=== PATIENT | male | born 1960 | race Caucasian/White ===

== ENCOUNTER → 2016-11-23 | Outpatient (CLI) | payer BC ==
[~2016-11-23] MED LIST: ASPI81TA28 PO; BUPR-79 PO; DILT240C48 PO; KETO10TA PO; OXYC-57 PO
--- NOTE | 2016-11-23 13:33 | DIAGNOSTIC IMAGING REPORT ---
ORBIT RADIOGRAPHS 3 VIEWS HISTORY: pre-MRI screening. COMPARISON: None. FINDINGS: There are no radiopaque foreign bodies identified within the orbits. IMPRESSION: No radiopaque foreign bodies identified within the orbits. Electronically signed by: Nilesh Busch M.D. 11/23/2016 1:32 PM Dictated Date/Time: 11/23/2016 1:31 PM
--- NOTE | 2016-11-23 13:37 | DIAGNOSTIC IMAGING REPORT ---
CHEST 2 VIEWS ROUTINE CLINICAL HISTORY: LEFT SHOULDER PAIN COMPARISON STUDY: No previous studies for comparison. FINDINGS: A dual lead left pacemaker is in place. Lead tips project of the right atrial appendage and right ventricle. Leads are intact. Markers indicate an Advisa SureScan pacemaker. Cardiac size is normal. Mediastinal contours are normal. There is no evidence of pulmonary edema. IMPRESSION: 1. No acute cardiopulmonary findings. 2. Dual lead left subclavian pacemaker, as described above. Electronically signed by: Jae Abraham M.D. 11/23/2016 1:36 PM Dictated Date/Time: 11/23/2016 1:32 PM
--- NOTE | 2016-11-23 14:41 | DIAGNOSTIC IMAGING REPORT ---
FLUOROSCOPICALLY GUIDED LEFT SHOULDER ARTHROGRAM PRIOR TO MRI CLINICAL HISTORY: Left shoulder pain. Fluoroscopy time: 0.4 minutes. Procedure: The procedure, risks and benefits were discussed with the patient and informed written consent was obtained. The procedure was performed by Dr. Abraham following a timeout. Skin overlying the left glenohumeral joint was prepped and draped in sterile fashion and local anesthesia was achieved with 1% lidocaine. A left subclavian pacemaker was incidentally noted. Under intermittent fluoroscopic guidance, a 2 1/2 inch, 22-gauge needle was directed into the left glenohumeral joint. Positioning within the joint space was confirmed with injection of a small amount of contrast. At this time, a mixture of 0.05 cc of Gadavist, 10 cc of normal saline and 10 cc of Optiray 300 was injected into the left glenohumeral joint. The needle was removed. The patient tolerated the procedure well and no immediate complications were evident. IMPRESSION: Fluoroscopically guided left shoulder arthrogram prior to MRI. Electronically signed by: Jae Abraham M.D. 11/23/2016 2:39 PM Dictated Date/Time: 11/23/2016 2:38 PM
--- NOTE | 2016-11-24 18:07 | DIAGNOSTIC IMAGING REPORT ---
MRI ARTHROGRAM OF THE LEFT SHOULDER CLINICAL HISTORY: Left shoulder pain and decreased range of motion following injury. COMPARISON STUDY: No previous studies for comparison. TECHNIQUE: Following a fluoroscopically guided left shoulder arthrogram and utilizing a 1.5 Michelle magnet and dedicated coil, multiplanar, multiecho imaging of the left shoulder was performed. FINDINGS: There is expected artifact from the left pacemaker. There is contrast within the subacromial/subdeltoid bursa. This is likely due to a full-thickness subscapularis tear. There is significant retraction of the subscapularis tendon to the level the subpleural focal bursa. There is also tendinopathy with a tear of the distal anterior fibers of supraspinatus. This represents at least a high-grade partial-thickness tear with possible small full-thickness component. There is no full-thickness tear of infraspinatus. The proximal long head of biceps tendon is intact. There is moderate osteoarthritis of the acromioclavicular joint. The glenoid labrum is truncated with fraying. No mass or fluid collection shown adjacent to the left shoulder. IMPRESSION: 1. Full-thickness tear of subscapularis with significant tendon retraction. 2. High-grade partial-thickness tear of distal supraspinatus. No tendon retraction of supraspinatus or infraspinatus. 3. Moderate osteoarthritis of the left acromioclavicular joint. 4. Truncated, irregular glenoid labrum. Electronically signed by: Jae Abraham M.D. 11/24/2016 6:06 PM Dictated Date/Time: 11/23/2016 3:35 PM
== END | disposition home or self-care (01) ==
LOC: C.MRI 12:55
PROVIDERS: ATTEND Physician Assistant Surgical
DX: M25.512 Pain in left shoulder (principal)

== ENCOUNTER → 2016-12-12 | Outpatient (CLI) | payer BC ==
--- NOTE | 2016-12-12 11:43 | DIAGNOSTIC IMAGING REPORT ---
CHEST 2 VIEWS ROUTINE HISTORY: 56-year-old male presents for preoperative exam. COMPARISON: Chest radiographs 11/23/2016. TECHNIQUE: Frontal and lateral views of the chest. FINDINGS: Dual lead left subclavian pacer is again noted with leads overlying the right atrial appendage and right ventricle. Leads appear to be intact. Cardiac silhouette is within normal limits. No pneumothorax, pleural effusion or focal airspace consolidation. The bones appear intact. IMPRESSION: 1. No acute cardiomegaly process. 2. Dual-lead left subclavian pacer as above. Electronically signed by: Sergio Wilson 12/12/2016 11:42 AM Dictated Date/Time: 12/12/2016 11:39 AM
[2016-12-12 12:09] LABS: BASO % 0.3 %; BASO ABS # 0.04 K/uL (0-0.2); COMPLETE YES; EOS % 1.8 %; HEMATOCRIT 46.7 % (42-52); IG% 0.2 %; LYMPH ABS # 3.61 K/uL (1.2-3.4); MEAN CORPUSCULAR HEMOGLOBIN 29.9 pg (25-34); MEAN CORPUSCULAR HGB CONC 33.2 g/dl (32-36); MEAN PLATELET VOLUME 11.1 fL (7.4-10.4); NEUT % 62.7 %; PLATELET COUNT 269 K/uL (130-400); RED BLOOD COUNT 5.19 M/uL (4.7-6.1); WHITE BLOOD COUNT 12.43 K/uL (4.8-10.8)
[2016-12-12 12:23] LABS: BLOOD UREA NITROGEN 16 mg/dl (7-18); CALCIUM 9.2 mg/dl (8.5-10.1); CARBON DIOXIDE 25 mmol/L (21-32); CHLORIDE 110 mmol/L (98-107); CREATININE 0.97 mg/dl (0.60-1.40); GLUCOSE 89 mg/dl (70-99); POTASSIUM 4.3 mmol/L (3.5-5.1); SODIUM 142 mmol/L (136-145)
== END | disposition home or self-care (01) ==
LOC: C.LAB 10:33
PROVIDERS: ATTEND Orthopaedic Surgery
DX: Z01.812 Encounter for preprocedural laboratory examination (principal); Z01.810 Encounter for preprocedural cardiovascular examination; Z95.0 Presence of cardiac pacemaker

== ENCOUNTER → 2016-12-22 | Day surgery (SDC) | payer BC ==
[2016-12-14 08:57] VITALS: Ht 175.3 cm; Wt 81.8 kg
[~2016-12-22] VITALS: Ht 175.3 cm; Wt 81.8 kg
[~2016-12-22] MED LIST changes: +ATROPINE SULFATE 0.1 MG/ML 5ML SYR IV PRN; +CEFAZOLIN 2000 MG/60 ML D5W IV SCH; +EpHEDrine SULFATE INJ 50 MG/ML AMP IV PRN; +EpINEphrine INJ 1MG/ML AMP 1 MG/ML AMP ONE; +FENTANYL CITRATE INJ 50 MCG/1 ML 2 ML VIAL ONE; +GLYCOPYRROLATE INJ 0.2 MG/ML VIAL ONE; +HYDROmorphone INJ 1 MG/ML SYR IV PRN; +KETOROLAC TROMETHAMINE 30 MG/ML VIAL ONE; +LACTATED RINGER'S 1000ML 1,000 ML IV SCH; +LIDOCAINE HCL 1% MPF 2 ML VIAL ONE; +LIDOCAINE HCL 2% 2 ML VIAL (20MG/ML) ONE; +MIDAZOLAM HCL 1 MG/ML 2ML VIAL ONE; +NEOSTIGMINE METHYLSULFATE 5 MG/5 ML SYR ONE; +ONDANSETRON INJ 2 MG/ML 2 ML VIAL IV PRN; +ONDANSETRON INJ 2 MG/ML 2 ML VIAL ONE; +OXYCODONE/ACETAMINOPHEN 5-325 TAB PO PRN; +PHENYLEPHRINE HCL INJ 10 MG/ML VIAL ONE; +PROPOFOL IV EMULSION 10 MG/ML 20 ML VIAL IV ONE; +ROCURONIUM BROMIDE 10 MG/ML 5 ML VIAL ONE; +ROPIVACAINE 0.5% 5 MG/ML 30 ML VIAL ONE; +SODIUM CHLORIDE 0.9% 1000ML 1,000 ML IV SCH
--- NOTE | 2016-12-22 11:00 | History & Physical Bridge - [place] ---
H&P Re-Evaluation Bridge Note: I have examined the patient, reviewed the History & Physical and in the interval since the performance of the History & Physical I have noted the following changes of clinical significance: No changes noted
[2016-12-22] MEDS: BUPIVACAINE/EPINEPHRINE 0.25% 1:200,000 30 ML VIAL ONE ×2 (14:29→14:38)
--- NOTE | 2016-12-22 14:52 | Discharge Instructions-SurgCtr ---
Discharge Instructions Date of Service Dec 22, 2016. Visit Reason for Visit: Left Shoulder Full Thickness Rotator Cuff Tear Discharge Discharge Diagnosis / Problem: SAME ABOVE Discharge Goals Goal(s): Decrease discomfort, Improve function Medications Stopped Medications Name(s): D/C'D ASA x 5 days Restart Stopped Medication(s): MAY RESTART ASA 12/23/2016 Activity Recommendations Activity Limitations: as noted below Lifting Limitations: until after follow-up appointment Exercise/Sports Limitations: until after follow-up appointment Shower/Bathe: tomorrow Anesthesia . Post Anesthesia Instructions: If you have had General Anesthesia or IV Sedation: * Do not drive today. * Resume driving when surgeon permits. * Do not make important decisions or sign legal documents today. * Call surgeon for: 1. Temperature elevations greater than 101 degrees F. 2. Uncontrollable pain. 3. Excessive bleeding. 4. Persistent nausea and vomiting. 5. Medication intolerance (nausea, vomiting or rash). * For nausea and vomiting use only clear liquids such as: tea, soda, bouillon until nausea subsides, then gradually increase diet as tolerated. * If you have any concerns or questions, call your surgeon's office. If physician is unavailable and it is an emergency, call 911 or go to the nearest emergency room. . Instructions / Follow-Up Instructions / Follow-Up MEDICATIONS: * Resume previous medications unless instructed otherwise by your surgeon. * Always take pain medication on a full stomach or with food to avoid upset stomach. * Do not drink alcohol or drive while taking narcotics. * Ibuprofen or Tylenol may be taken if narcotic not needed. SPECIAL CARE INSTRUCTIONS: __ None _X_ Keep extremity elevated and iced x 48 hours; apply ice 20-30 minutes 8-10 times/day. May remove at night. __ Sling __24 hrs/day __ Remove at night _X_ Shoulder Immobilizer (MAY REMOVE AFTER 48 HOURS ONLY TO SHOWER AND FOR THERAPY) _X_ 24 hrs/day __ Remove at night _X_ Dressing __ Maintain until seen in office, may shower with plastic over site _X_ Remove dressings in 24-48 hours and then may shower _X_ Cover incisions with band-aids after showering _X_ Do not remove steri-strips (THEY MAY FALL OFF ON THEIR OWN) Call physician if chills or temperature rises above 102 degrees or pain unrelieved by prescribed pain medications at . . Diet Recommendations Home Diet: no limitations Fluid Restriction: None Procedures Procedures Performed: Left Shoulder Arthroscopic Large Rotator Cuff Repair, Acromioplasty, Open Biceps Tenodesis Pending Studies Studies pending at discharge: no Work Instructions Return To Work: after follow-up Lifting Limitations: NO LIFTING WITH LEFT ARM Medical Emergencies . Who to Call and When: Medical Emergencies: If at any time you feel your situation is an emergency, please call 911 immediately. . Non-Emergent Contact Non-Emergency issues call your: Primary Care Provider Call Non-Emergent contact if: you have a fever, temperature is above 101.5 . . "Provider Documentation" section prepared by Bony Cooper. .
--- NOTE | 2016-12-22 15:47 | Anesthesia Progress Nt - [facility] ---
Anesthesia Post Op Note Date & Time Dec 22, 2016 at 15:47 Vital Signs Pain Intensity: 3 Vital Signs Past 12 Hours Date Time Temp Pulse Resp B/P (MAP) Pulse Ox O2 Delivery O2 Flow Rate FiO2 12/22/16 15:43 36.4 63 20 115/77 98 Room Air 12/22/16 15:42 64 20 12/22/16 15:42 62 20 98 12/22/16 15:41 115/77 12/22/16 15:37 63 20 12/22/16 15:37 64 20 97 12/22/16 15:36 113/77 12/22/16 15:32 69 20 98 12/22/16 15:32 69 20 12/22/16 15:31 125/74 12/22/16 15:27 59 19 97 12/22/16 15:27 60 19 12/22/16 15:26 117/80 12/22/16 15:24 61 24 12/22/16 15:24 65 24 95 12/22/16 15:22 120/83 12/22/16 15:19 65 20 99 12/22/16 15:19 60 20 12/22/16 15:17 129/81 12/22/16 15:14 63 21 12/22/16 15:14 72 21 96 12/22/16 15:11 122/84 12/22/16 15:09 60 24 100 12/22/16 15:09 60 24 12/22/16 15:06 116/81 12/22/16 15:04 60 20 100 12/22/16 15:04 60 20 12/22/16 15:01 126/81 12/22/16 14:59 80 24 95 12/22/16 14:59 71 24 12/22/16 14:57 111/64 12/22/16 14:54 36.2 66 20 111/64 98 Humidified Oxygen 6 Diffusion Mask 12/22/16 14:54 67 18 12/22/16 14:54 18 12/22/16 12:29 64 31 99 12/22/16 12:29 63 12/22/16 12:26 108/80 12/22/16 12:24 60 12/22/16 12:24 60 18 99 12/22/16 12:22 118/77 12/22/16 12:19 64 12/22/16 12:19 64 28 99 12/22/16 12:16 139/93 12/22/16 12:14 60 12/22/16 12:14 59 15 99 12/22/16 12:11 131/84 12/22/16 12:09 60 12/22/16 12:09 60 24 100 12/22/16 12:07 119/82 12/22/16 12:04 60 15 12/22/16 11:59 60 17 12/22/16 11:54 59 0 12/22/16 11:49 62 0 12/22/16 11:44 60 0 12/22/16 11:39 60 0 12/22/16 11:34 0 12/22/16 11:29 0 12/22/16 11:24 0 12/22/16 10:33 36.6 61 16 117/70 (86) 96 Room Air Notes Mental Status: alert / awake / arousable, participated in evaluation Pt Amnestic to Procedure: Yes Nausea / Vomiting: adequately controlled Pain: adequately controlled Airway Patency, RR, SpO2: stable & adequate BP & HR: stable & adequate Hydration State: stable & adequate Anesthetic Complications: no major complications apparent
[2016-12-22 15:57] VITALS: TEMP 36.3
--- NOTE | 2016-12-22 16:03 | [facility] Post Operative Brief Note ---
Immediate Operative Summary Operative Date Dec 22, 2016. Pre-Operative Diagnosis Left Shoulder Full Thickness Rotator Cuff Tear Post-Operative Diagnosis Same Procedure(s) Performed Left Shoulder Arthroscopic Large Rotator Cuff Repair, Acromioplasty, Open Biceps Tenodesis Surgeon Dr. Ashford [employer] Surgeon(s) Teddy Cooper PA-C Estimated Blood Loss 20 ml Findings as above Specimens None Complication(s) None Disposition Recovery Room / PACU
[2016-12-22 16:28] VITALS: BP 127/83; PULSE 70; O2SAT 97
== END | disposition home or self-care (01) ==
LOC: X.SURG 08:56
PROVIDERS: ATTEND Orthopaedic Surgery
DX: M75.102 Unspecified rotator cuff tear or rupture of left shoulder, not specified as traumatic (principal); W19.XXXA Unspecified fall, initial encounter; I10 Essential (primary) hypertension; Z79.891 Long term (current) use of opiate analgesic